=== PATIENT | female | born 1955 | race Caucasian/White ===

== ENCOUNTER 2018-05-21 06:46 | Day surgery (SDC) | payer BC, MEDICAID ==
[2018-05-21] MEDS ORDERED: FENTAnyl 50 MCG/ML VIAL (09:49)
[2018-05-21] MEDS ORDERED: MIDAZOLAM 1 MG/ML 2 ML INJ ×2 (09:49)
== END 2018-05-21 12:32 | disposition home or self-care (01) ==
LOC: GIL 06:46
DX: Z12.11 Encounter for screening for malignant neoplasm of colon (principal); K31.7 Polyp of stomach and duodenum; D12.5 Benign neoplasm of sigmoid colon; K21.9 Gastro-esophageal reflux disease without esophagitis
CPT/HCPCS: 43239; 88305; 88312